=== PATIENT | female | born 2000 | race Caucasian/White ===

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

== ENCOUNTER 2019-05-19 05:24 | Emergency (ER) | payer OTHER ==
[2019-05-19] MEDS ORDERED: Naloxone 0.4 MG/ML Syringe ONE ×2 (05:39→05:45)
[2019-05-19] MEDS ORDERED: Ondansetron 4 MG/2 ML SDV IVPUSH ONE (05:51)
[2019-05-19] MEDS ORDERED: Sodium Chloride 0.9% 1,000 ML IV ONE (05:59)
--- NOTE | 2019-05-19 05:59 | EDM.PDOC ---
ED HPI GENERAL MEDICAL PROBLEM <David Carolina - Last Filed: 05/19/19 08:39> - General Source of Information: Reports: Patient History Limitations: Reports: No Limitations <Andrea Muhammad - Last Filed: 05/19/19 20:58> - General Chief Complaint: Drug or Alcohol Abuse Stated Complaint: DRUG OVERDOSE Time Seen by Provider: 05/19/19 05:58 - History of Present Illness INITIAL COMMENTS - FREE TEXT/NARRATIVE: Patient at this time is gotten a second liter of fluids including a banana bag. Mother feels confident she can take care of the child at home. There is no airway issue patient's vitals are stable. Assessment: Alcohol intoxication. (David Carolina) Patient is 19-year-old female with past medical history of drug and alcohol abuse. Patient is present with mother. Mother is concerned that she took too many drugs or drink too much. She found the daughter in her home minimally responsive and vomiting. The patient has no history of traumatic injury but does have a history of drinking too much alcohol. Review of systems unable to be obtained secondary to patient's mental status I have reviewed the triage vital signs Const: Minimally responsive but maintaining airway Eyes: PERRL, no conjunctival injection. Pupils are 3 mm and reactive bilaterally HENT: NCAT, Neck supple without meningismus CV: RRR, Warm, well-perfused extremities RESP: CTAB, Unlabored respiratory effort GI: soft, non-tender, non-distended, no masses MSK: No gross deformities appreciated Skin: Warm, dry. No rashes Neuro: Lethargic but moves all 4 extremities spontaneously Psych: Unable to assess Assessment and plan: Patient is 19-year-old female presenting with alcohol intoxication. Patient's alcohol level found to be 490. Patient is hyponatremic likely secondary to dehydration. No other evidence of acute electrolyte abnormalities that require immediate intervention. No evidence of kidney injury. 2 rounds of Narcan were given without any response this is unlikely related to concomitant heroin use. Since there is no physical history or evidence of trauma no other imaging studies will be performed at this time. Patient is maintaining her airway and does not require intubation at this time. Once patient is awake enough to ambulate with mother, the mother will escort the patient home. Patient be signed out to Dr. Carolina pending further sobriety. Mother agrees with this plan. (Andrea Muhammad) - Related Data Allergies Allergy/AdvReac Type Severity Reaction Status Date / Time No Known Allergies Allergy Verified 10/25/18 14:08 Home Meds: Home Meds . [No Known Home Meds] 05/19/19 [History] Past Medical History - Past Health History Medical/Surgical History: Denies Medical/Surgical History - Infectious Disease History Infectious Disease History: Reports: None <Andrea Muhammad - Last Filed: 05/19/19 20:58> Social & Family History - Family History Family Medical History: Noncontributory - Caffeine Use Caffeine Use: Reports: Coffee <Andrea Muhammad - Last Filed: 05/19/19 20:58> ED ROS GENERAL - Review of Systems Review Of Systems: See Below Constitutional: Reports: No Symptoms HEENT: Reports: No Symptoms Respiratory: Reports: No Symptoms Cardiovascular: Reports: No Symptoms Endocrine: Reports: No Symptoms GI/Abdominal: Reports: No Symptoms Musculoskeletal: Reports: No Symptoms Skin: Reports: No Symptoms Neurological: Reports: No Symptoms Psychiatric: Reports: No Symptoms Hematologic/Lymphatic: Reports: No Symptoms Immunologic: Reports: No Symptoms <CarolinaHernandez - Last Filed: 05/19/19 08:39> - Physical Exam Exam: See Below Exam Limited By: Intoxication General Appearance: No Apparent Distress, Lethargic Eye Exam: Bilateral Eye: Normal Fundi, Normal Inspection Ears: Normal External Exam, Normal TMs Nose: Normal Inspection Throat/Mouth: Normal Inspection Head Exam: Atraumatic, Normocephalic Neck: Normal Inspection Respiratory/Chest: No Respiratory Distress Cardiovascular: Normal Peripheral Pulses, No JVD GI/Abdominal: Normal Bowel Sounds (Female) Exam: Deferred Rectal (Female) Exam: Deferred Neuro Exam (Abbreviated): Slow to Respond Back Exam: Normal Inspection, Full Range of Motion Extremities: Normal Inspection, Normal Range of Motion Psychiatric: Normal Affect Skin Exam: Warm, Dry, Intact <David Carolina - Last Filed: 05/19/19 08:39> - Vital Signs Last Recorded V/S: Last Vital Signs Temp 37.1 C 05/19/19 05:30 Pulse 101 H 05/19/19 10:17 Resp 16 05/19/19 10:17 BP 98/62 05/19/19 10:17 Pulse Ox 96 05/19/19 10:17 - Orders/Labs/Meds Orders: Active Orders 24 hr Category Date Time Status EKG Documentation Completion [RC] STAT Care 05/19/19 07:04 Active Labs: Laboratory Tests 05/19/19 05/19/19 05/19/19 Range/Units 05:40 05:40 06:00 WBC 6.44 (4.0-11.0) K/uL RBC 5.22 (4.30-5.90) M/uL Hgb 15.3 (12.0-16.0) g/dL Hct 46.5 H (36.0-46.0) % MCV 89.1 (80.0-98.0) fL MCH 29.3 (27.0-32.0) pg MCHC 32.9 (31.0-37.0) g/dL RDW Std Deviation 41.9 (28.0-62.0) fl RDW Coeff of Donny 13 (11.0-15.0) % Plt Count 410 H (150-400) K/uL MPV 9.70 (7.40-12.00) fL Neut % (Auto) 50.8 (48.0-80.0) % Lymph % (Auto) 35.9 (16.0-40.0) % Frontier % (Auto) 7.0 (0.0-15.0) % Eos % (Auto) 5.7 (0.0-7.0) % Baso % (Auto) 0.6 (0.0-1.5) % Neut # (Auto) 3.3 (1.4-5.7) K/uL Lymph # (Auto) 2.3 (0.6-2.4) K/uL Frontier # (Auto) 0.5 (0.0-0.8) K/uL Eos # (Auto) 0.4 (0.0-0.7) K/uL Baso # (Auto) 0.0 (0.0-0.1) K/uL Nucleated RBC % 0.0 /100WBC Nucleated RBCs # 0 K/uL Sodium 150 H (136-145) mmol/L Potassium 3.2 L (3.5-5.1) mmol/L Chloride 110 H (98-107) mmol/L Carbon Dioxide 26.8 (21.0-32.0) mmol/L BUN 4 L (7.0-18.0) mg/dL Creatinine 0.8 (0.6-1.0) mg/dL Est Cr Clr Drug Dosing TNP Estimated GFR (MDRD) > 60.0 ml/min Glucose 114 H (74-106) mg/dL Calcium 8.5 (8.5-10.1) mg/dL Total Bilirubin 0.2 (0.2-1.0) mg/dL AST 16 (15-37) IU/L ALT 20 (14-63) IU/L Alkaline Phosphatase 86 (46-116) U/L Total Protein 8.3 H (6.4-8.2) g/dL Albumin 4.1 (3.4-5.0) g/dL Globulin 4.2 H (2.6-4.0) g/dL Albumin/Globulin Ratio 1.0 (0.9-1.6) Urine Color YELLOW Urine Appearance CLEAR Urine pH 6.0 (5.0-8.0) Ur Specific Reading <= 1.005 (1.001-1.035) Urine Protein NEGATIVE (NEGATIVE) mg/dL Urine Glucose (UA) NEGATIVE (NEGATIVE) mg/dL Urine Ketones NEGATIVE (NEGATIVE) mg/dL Urine Occult Blood NEGATIVE (NEGATIVE) Urine Nitrite NEGATIVE (NEGATIVE) Urine Bilirubin NEGATIVE (NEGATIVE) Urine Urobilinogen 0.2 (<2.0) EU/dL Ur Leukocyte Esterase NEGATIVE (NEGATIVE) Urine RBC 0-1 (0-2/HPF) Urine WBC 0-1 (0-5/HPF) Ur Epithelial Cells RARE (NONE-FEW) Urine Bacteria RARE (NEGATIVE) Urine Opiates Screen (NEGATIVE) Ur Oxycodone Screen (NEGATIVE) Urine Methadone Screen (NEGATIVE) Ur Barbiturates Screen (NEGATIVE) Ur Phencyclidine Scrn (NEGATIVE) Ur Amphetamine Screen (NEGATIVE) U Methamphetamines Scrn (NEGATIVE) U Benzodiazepines Scrn (NEGATIVE) U Cocaine Metab Screen (NEGATIVE) U Marijuana (THC) Screen (NEGATIVE) Ethyl Alcohol 490 mg/dL 05/19/19 Range/Units 06:00 WBC (4.0-11.0) K/uL RBC (4.30-5.90) M/uL Hgb (12.0-16.0) g/dL Hct (36.0-46.0) % MCV (80.0-98.0) fL MCH (27.0-32.0) pg MCHC (31.0-37.0) g/dL RDW Std Deviation (28.0-62.0) fl RDW Coeff of Donny (11.0-15.0) % Plt Count (150-400) K/uL MPV (7.40-12.00) fL Neut % (Auto) (48.0-80.0) % Lymph % (Auto) (16.0-40.0) % Frontier % (Auto) (0.0-15.0) % Eos % (Auto) (0.0-7.0) % Baso % (Auto) (0.0-1.5) % Neut # (Auto) (1.4-5.7) K/uL Lymph # (Auto) (0.6-2.4) K/uL Frontier # (Auto) (0.0-0.8) K/uL Eos # (Auto) (0.0-0.7) K/uL Baso # (Auto) (0.0-0.1) K/uL Nucleated RBC % /100WBC Nucleated RBCs # K/uL Sodium (136-145) mmol/L Potassium (3.5-5.1) mmol/L Chloride (98-107) mmol/L Carbon Dioxide (21.0-32.0) mmol/L BUN (7.0-18.0) mg/dL Creatinine (0.6-1.0) mg/dL Est Cr Clr Drug Dosing Estimated GFR (MDRD) ml/min Glucose (74-106) mg/dL Calcium (8.5-10.1) mg/dL Total Bilirubin (0.2-1.0) mg/dL AST (15-37) IU/L ALT (14-63) IU/L Alkaline Phosphatase (46-116) U/L Total Protein (6.4-8.2) g/dL Albumin (3.4-5.0) g/dL Globulin (2.6-4.0) g/dL Albumin/Globulin Ratio (0.9-1.6) Urine Color Urine Appearance Urine pH (5.0-8.0) Ur Specific Reading (1.001-1.035) Urine Protein (NEGATIVE) mg/dL Urine Glucose (UA) (NEGATIVE) mg/dL Urine Ketones (NEGATIVE) mg/dL Urine Occult Blood (NEGATIVE) Urine Nitrite (NEGATIVE) Urine Bilirubin (NEGATIVE) Urine Urobilinogen (<2.0) EU/dL Ur Leukocyte Esterase (NEGATIVE) Urine RBC (0-2/HPF) Urine WBC (0-5/HPF) Ur Epithelial Cells (NONE-FEW) Urine Bacteria (NEGATIVE) Urine Opiates Screen NEGATIVE (NEGATIVE) Ur Oxycodone Screen NEGATIVE (NEGATIVE) Urine Methadone Screen NEGATIVE (NEGATIVE) Ur Barbiturates Screen NEGATIVE (NEGATIVE) Ur Phencyclidine Scrn NEGATIVE (NEGATIVE) Ur Amphetamine Screen NEGATIVE (NEGATIVE) U Methamphetamines Scrn NEGATIVE (NEGATIVE) U Benzodiazepines Scrn NEGATIVE (NEGATIVE) U Cocaine Metab Screen POSITIVE (NEGATIVE) U Marijuana (THC) Screen NEGATIVE (NEGATIVE) Ethyl Alcohol mg/dL Meds: Medications Discontinued Medications Generic Name Dose Route Start Last Admin Trade Name Freq PRN Reason Stop Dose Admin Sodium Chloride 1,000 mls @ 999 mls/hr 05/19/19 05:59 05/19/19 06:01 Normal Saline IV 05/19/19 06:59 999 mls/hr .BOLUS ONE Administration Multivitamins/Minerals 10 ml/ 1,011.2 mls @ 999 mls/hr 05/19/19 07:18 07:51 Thiamine HCl 100 mg/ Folic IV 05/19/19 08:18 999 mls/hr Acid 1 mg/ Sodium Chloride ONETIME ONE Administration Sodium Chloride 1,000 mls @ 999 mls/hr 05/19/19 09:45 05/19/19 10:05 Normal Saline IV 999 mls/hr STAT STUART Administration Naloxone HCl Confirm 05/19/19 05:39 05/19/19 07:05 Narcan Administered 05/19/19 05:40 Not Given Dose 0.4 mg .ROUTE .STK-MED ONE Naloxone HCl Confirm 05/19/19 05:45 05/19/19 07:05 Narcan Administered 05/19/19 05:46 Not Given Dose 0.4 mg .ROUTE .STK-MED ONE Naloxone HCl 0.4 mg 05/19/19 07:04 05/19/19 05:42 Narcan IVPUSH 05/19/19 07:05 0.4 mg ONETIME ONE Administration Naloxone HCl 0.4 mg 05/19/19 07:04 05/19/19 05:47 Narcan IVPUSH 05/19/19 07:05 0.4 mg ONETIME ONE Administration Ondansetron HCl 4 mg 05/19/19 05:51 05/19/19 06:01 Lorna IVPUSH 05/19/19 05:52 4 mg ONETIME ONE Administration Departure - Departure Time of Disposition: 08:40 Condition: Good <David Carolina - Last Filed: 05/19/19 08:39> <Jocelyne Muhammadangel - Last Filed: 05/19/19 20:58> - Departure Disposition: Home, Self-Care 01 Clinical Impression: Alcohol abuse - Discharge Information Instructions: What You Need to Know About Alcohol Abuse and Dependence, Adult, Alcohol Intoxication, [id number] Referrals: PCP,None [Primary Care Provider] - Forms: ED Department Discharge Additional Instructions: The following information is given to patients seen in the emergency department who are being discharged to home. This information is to outline your options for follow-up care. We provide all patients seen in our emergency department with a follow-up referral. The need for follow-up, as well as the timing and circumstances, are variable depending upon the specifics of your emergency department visit. If you don't have a primary care physician on staff, we will provide you with a referral. We always advise you to contact your personal physician following an emergency department visit to inform them of the circumstance of the visit and for follow-up with them and/or the need for any referrals to a consulting specialist. The emergency department will also refer you to a specialist when appropriate. This referral assures that you have the opportunity for follow-up care with a specialist. All of these measure are taken in an effort to provide you with optimal care, which includes your follow- up. Under all circumstances we always encourage you to contact your private physician who remains a resource for coordinating your care. When calling for follow-up care, please make the office aware that this follow-up is from your recent emergency room visit. If for any reason you are refused follow-up, please contact the [facility] Emergency Department at and asked to speak to the emergency department charge nurse. [facility] [address] [place] [phone] [facility] [address] [place] [address] Sepsis Event Note - Focused Exam Date Exam was Performed: 05/19/19 Time Exam was Performed: 08:39 <David Carolina - Last Filed: 05/19/19 08:39> - Focused Exam Date Exam was Performed: 05/19/19 Time Exam was Performed: 20:54 <Andrea Muhammad - Last Filed: 05/19/19 20:58> - Focused Exam Vital Signs: Vital Signs Pulse Resp BP Pulse Ox 05/19/19 10:17 101 H 16 98/62 96 - My Orders Last 24 Hours: My Active Orders 05/19/19 07:04 EKG Documentation Completion [RC] STAT - Assessment/Plan Last 24 Hours: My Active Orders 05/19/19 07:04 EKG Documentation Completion [RC] STAT
[2019-05-19 06:35] LABS: BLOOD UREA NITROGEN,BUN 4 mg/dL (7.0-18.0); CARBON DIOXIDE,CO2 26.8 mmol/L (21.0-32.0); CHLORIDE,CL 110 mmol/L (98-107); GLUCOSE RANDOM 114 mg/dL (74-106); POTASSIUM,K 3.2 mmol/L (3.5-5.1); SODIUM,NA 150 mmol/L (136-145)
[2019-05-19] MEDS ORDERED: Naloxone 0.4 MG/ML Syringe IVPUSH ONE ×2 (07:04)
[2019-05-19] MEDS ORDERED: MVI, Adult with Vitamin K 10 ML, Thiamine 100 MG, Folic Acid 1 MG in Sodium Chloride 0.... IV ONE ×4 (07:18)
[2019-05-19] MEDS ORDERED: Sodium Chloride 0.9% 1,000 ML IV SCH (09:45)
[2019-05-19 10:18] VITALS: BP 98/62; PULSE 101
== END 2019-05-19 10:18 | disposition home or self-care (01) ==
LOC: MW.ED 05:24
DX: F10.10 Alcohol abuse, uncomplicated (principal)
CPT/HCPCS: 36415; 51702; 80053; 80305-QW; 80307; 81001; 85025; 93005; 96361; 96365; 96375; 99284-25; A9270-GY; J2405; J3411; J7030

== ENCOUNTER 2021-06-26 23:07 | Inpatient (IN) | payer OTHER ==
[2021-06-27] MEDS ORDERED: Butorphanol 1 MG/ML SDV IVPUSH PRN (01:23)
[2021-06-27] MEDS ORDERED: Sodium Chloride 0.9% 2.5 ML Syringe FLUSH PRN (01:23)
[2021-06-27] MEDS ORDERED: Lidocaine 1% 50 ML MDV INJECT PRN (01:23)
[2021-06-27] MEDS ORDERED: Sodium Chloride 0.9% 10 ML Syringe FLUSH PRN (01:23)
[2021-06-27] MEDS ORDERED: Tranexamic Acid 1,000 MG in Sodium Chloride 0.9% 100 ML IV PRN (01:23)
[2021-06-27] MEDS ORDERED: Misoprostol 200 MCG Tab PO PRN (01:23)
[2021-06-27] MEDS ORDERED: Methylergonovine 0.2 MG/1 ML Amp IM PRN (01:23)
[2021-06-27] MEDS ORDERED: Carboprost Tromethamine 250 MCG/1 ML Amp IM PRN (01:23)
[2021-06-27] MEDS ORDERED: Sodium Chloride 0.9% 20 ML SDV IV PRN (01:23)
[2021-06-27] MEDS ORDERED: Misoprostol 25 MCG (1/4 of 100 MCG) Tab VAG PRN ×2 (01:23→07:30)
[2021-06-27] MEDS ORDERED: Water For Irrigation,Sterile 1,000 ML Container IRR PRN (01:23)
[2021-06-27] MEDS ORDERED: Terbutaline 1 MG/ML SDV SUBCUT PRN (01:23)
[2021-06-27] MEDS ORDERED: Oxytocin/0.9 % Sodium Chloride 30 UNIT/500 ML BAG IV SCH ×2 (01:30)
[2021-06-27] MEDS ORDERED: ePHEDrine 50 MG/ML SDV IVPUSH PRN ×2 (09:01)
[2021-06-27] MEDS: Lactated Ringers 1,000 ML IV SCH ×4 (13:06→21:54)
[2021-06-27] MEDS: Ondansetron 4 MG/2 ML SDV IVPUSH PRN (20:08)
[2021-06-27] MEDS: Ropivacaine 200 MG in Premix Bag 1 BAG EPIDUR SCH (21:56)
[2021-06-28] MEDS: Acetaminophen 500 MG Tab PO PRN ×2 (00:07→18:20)
[2021-06-28] MEDS: Lactated Ringers 1,000 ML IV SCH ×4 (04:42→19:58)
[2021-06-28] MEDS ORDERED: fentaNYL 100 MCG/2 ML SDV ONE ×3 (07:08→21:46)
[2021-06-28] MEDS ORDERED: Bupivacaine 0.25% 10 ML SDV ONE (07:08)
[2021-06-28] MEDS: Ropivacaine 200 MG in Premix Bag 1 BAG EPIDUR SCH (15:13)
[2021-06-28] MEDS ORDERED: Acetaminophen 500 MG Tab PO ONE (18:05)
[2021-06-28] MEDS ORDERED: Ampicillin/Sulbactam Na 3 GM in Sodium Chloride 0.9% 100 ML IV ONE (18:06)
[2021-06-28] MEDS ORDERED: Ropivacaine HCl/PF 100 ML ONE (19:29)
[2021-06-28] MEDS ORDERED: Ondansetron 4 MG/2 ML SDV ONE ×2 (20:05→20:55)
[2021-06-28] MEDS ORDERED: Phenylephrine 1% 10 MG/ML SDV ONE (20:05)
[2021-06-28] MEDS ORDERED: Morphine PF 10 MG/10 ML SDV ONE (20:05)
[2021-06-28] MEDS ORDERED: Dexamethasone 4 MG/ML 5 ML MDV ONE (20:05)
[2021-06-28] MEDS ORDERED: Bupivacaine 0.5% 10 ML SDV ONE ×2 (20:05→20:09)
[2021-06-28] MEDS ORDERED: Oxytocin 10 Units/1 ML SDV ONE (20:05)
[2021-06-28] MEDS ORDERED: ceFAZolin 1 GM Vial ONE (20:05)
[2021-06-28] MEDS ORDERED: Midazolam 1 MG/ML 2 ML SDV ONE (20:43)
[2021-06-28] MEDS ORDERED: Ropivacaine 0.5% 5 MG/ML 30 ML SDV ONE (20:47)
[2021-06-28] MEDS ORDERED: fentaNYL 100 MCG/2 ML SDV IVPUSH PRN (21:03)
[2021-06-28] MEDS ORDERED: ePHEDrine 50 MG/ML SDV IVPUSH PRN (21:03)
[2021-06-28] MEDS ORDERED: Ondansetron 4 MG/2 ML SDV IVPUSH PRN (21:03)
[2021-06-28] MEDS ORDERED: Acetaminophen/oxyCODONE 325-5 MG Tab PO PRN ×2 (21:03→21:53)
[2021-06-28] MEDS ORDERED: diphenhydrAMINE 50 MG/ML SDV IVPUSH PRN (21:03)
[2021-06-28] MEDS ORDERED: Misoprostol 200 MCG Tab RECTAL PRN (21:53)
[2021-06-28] MEDS ORDERED: Ibuprofen 800 MG Tab PO PRN (21:53)
[2021-06-28] MEDS ORDERED: Bisacodyl 10 MG Supp RECTAL PRN (21:53)
[2021-06-28] MEDS ORDERED: Lanolin 100% Cream 7 GM Tube TOP PRN (21:53)
[2021-06-28] MEDS ORDERED: Lactated Ringers 1,000 ML IV SCH (22:00)
[2021-06-29] MEDS: Ketorolac 30 MG/ML SDV IVPUSH SCH ×4 (00:04→18:02)
[2021-06-29] MEDS ORDERED: Acetaminophen 1,000 MG in Premix Bag 1 BAG IV ONE (00:18)
[2021-06-29] MEDS: Ampicillin/Sulbactam Na 1.5 GM in Sodium Chloride 0.9% 50 ML IV SCH ×2 (00:53→06:12)
[2021-06-29] MEDS: Ondansetron 4 MG/2 ML SDV IVPUSH PRN (01:49)
[2021-06-29] MEDS ORDERED: Ibuprofen 800 MG Tab PO PRN (06:00)
[2021-06-29] MEDS: Docusate Sodium 100 MG Cap PO SCH ×2 (08:53→21:29)
[2021-06-29] MEDS ORDERED: Ampicillin/Sulbactam Na 1.5 GM in Sodium Chloride 0.9% 50 ML IV SCH (12:00)
[2021-06-30] MEDS: Ketorolac 30 MG/ML SDV IVPUSH SCH (00:25)
[2021-06-30 12:27] VITALS: BP 124/81; PULSE 100
[2021-06-30] MEDS: Docusate Sodium 100 MG Cap PO SCH (12:57)
== END 2021-06-30 17:20 | disposition home or self-care (01) | DRG 788 ==
LOC: MW.OBCHECK 23:07 → MW.OB 23:09 → MW.OBCHECK 06-27 01:23 → OBSVTOIN 06-27 20:49 → MW.OB 06-29 00:15
PROVIDERS: ADMIT Obstetrics & Gynecology; ATTEND Obstetrics & Gynecology
PROC: 10D00Z1 Extraction of Products of Conception, Low, Open Approach (ICD-10-PCS; principal; 2021-06-28)
PROC: 10907ZC Drainage of Amniotic Fluid, Therapeutic from Products of Conception, Via Natural or Artificial Opening (ICD-10-PCS; 2021-06-28)
PROC: 3E0P7VZ Introduction of Hormone into Female Reproductive, Via Natural or Artificial Opening (ICD-10-PCS; 2021-06-28)
PROC: 10H07YZ Insertion of Other Device into Products of Conception, Via Natural or Artificial Opening (ICD-10-PCS; 2021-06-28)
DX: O77.0 Labor and delivery complicated by meconium in amniotic fluid (principal); O42.92 Full-term premature rupture of membranes, unspecified as to length of time between rupture and onset of labor; Z37.0 Single live birth; O76 Abnormality in fetal heart rate and rhythm complicating labor and delivery; Z3A.38 38 weeks gestation of pregnancy; Z86.16 Personal history of COVID-19
CPT/HCPCS: 01967; 01968; 36415; 51702; 59025; 59200; 64488; 81003; 84112; 85025; 85027; 86592; 86850; 86900; 86901; A9270-GY; J0131; J0295; J0690; J1100; J1790; J1885; J2250; J2274; J2370; J2405; J2590; J2795; J3010; J3490; J7120